=== PATIENT | male | born 1960 | race Caucasian/White ===

== ENCOUNTER 2017-07-27 13:20 | Outpatient (CLI) | payer BC ==
--- NOTE | 2017-07-27 17:16 | RAD ---
CERVICAL SPINE RADIOGRAPHS 07/27/17 COMPARISON: 06/13/17 Four views provided. INDICATION: Cervical region disc degeneration. FINDINGS: The anterior metallic fusion spanning C4 through C6 is stable appearing. A subtle degree of lucency about vertebral body screws of the C6 level could relate to a minimal degree of loosening, although this is difficult to reliably discern on the provided views. Imaged cervical spine reveals no obviou s malalignment. This is partially obscured from view by overlying skull base. Lateral mass of C1 are appropriately aligned. Degenerative findings within the cervical spine is grossly stable. IMPRESSION: Postoperative fusion spanning C4 through C6 including anterior metallic plate, vertebral body screw s and intervertebral disc space prosthesis. A slight area of lucency about the C6 vertebral body scr ews on the lateral projection could relate to a mild degree of loosening. This may be further assess ed with CT exam as indicated. POS: [facility]
== END 2017-07-27 13:21 | disposition home or self-care (01) ==
LOC: TBSIIMAG 13:20
PROVIDERS: ATTEND Neurological Surgery
DX: M50.30 Other cervical disc degeneration, unspecified cervical region (principal); Z98.1 Arthrodesis status
CPT/HCPCS: 72040